=== PATIENT | female | born 1980 | race African-American/Black ===

== ENCOUNTER 2017-03-11 11:22 | Emergency (ER) | payer BC ==
[~2017-03-11] VITALS: Ht 167.6 cm; Wt 122.9 kg
--- NOTE | ~2017-03-11 | CR181 ---
[facility] A Service of [facility] & [facility] / [facility] RADIOLOGY TEXT RESULTS PATIENT: TORITO OVIEDO LOCATION: [facility] : 76 UNIT #: [id number] AGE: [address]: Nina De La Vega MD SEX: F ORDER DR: [id number] [facility] [address] [place], [place] [address] [id number] E MR#: [id number] Acc #: [id number] NAME: TORITO OVIEDO : 1980 SEX: F STUDY DATE/TIME: 03/11/2017 12:03 UNIT: [facility] ROOM: STUDY DESCRIPTION: CR Lumbar Spine 2 or 3 Views Attending Physician: Nina De La Vega M.D. Ordering Physician: Nina De La Vega M.D. Primary Care Physician: Komal Payne M.D. MEDICAL IMAGING REPORT This report is preliminary unless electronic signature is present EXAM Three views lumbar spine INDICATION Low back pain on the left side for 1 week. No known injury. FINDINGS No acute fracture or subluxation of the lumbar spine is identified. Lumbar vertebral body alignment appears within normal limits. Patient does have some mild degenerative changes. No aggressive osseous abnormalities are seen. Sacroiliac joints appear well preserved. IMPRESSION No acute disease. Dictated by... Barbi Ridley M.D. THIS IS AN ELECTRONICALLY VERIFIED REPORT Barbi Ridley M.D. at 03/12/2017 5:00 PM AFF/mjs TD: 03/11/2017 13:22 JOB #: [id number] MEDICAL IMAGING REPORT Page 1 of 1 COPY
[~2017-03-11 11:22] MED LIST: ALDACTONE PO; VOLTAREN75 MG PO; WALGREEN'S PHARMACY
[2017-03-11 11:56] LABS: URINE SOURCE CLEAN CATCH
[2017-03-11 12:09] LABS: URINE APPEARANCE CLEAR; URINE BILIRUBIN NEG (NEG); URINE BLOOD NEG (NEG); URINE COLOR YELLOW; URINE GLUCOSE NEG (NEG); URINE KETONE NEG (NEG); URINE LEUKOCYTE ESTERASE NEG (NEG); URINE NITRATE NEG (NEG); URINE PROTEIN NEG (NEG); URINE SPECIFIC GRAVITY 1.017 (1.003-1.035); URINE UROBILINOGEN 0.2 MG/DL (NEG)
[2017-03-11 12:14] LABS: CULTURE INDICATED? NO
== END 2017-03-11 12:34 | disposition home or self-care (01) ==
LOC: CED 11:22
PROVIDERS: Student in an Organized Health Care Education/Training Program
DX: S39.012A Strain of muscle, fascia and tendon of lower back, initial encounter (principal); J45.909 Unspecified asthma, uncomplicated; E03.9 Hypothyroidism, unspecified; Z88.0 Allergy status to penicillin; Z88.2 Allergy status to sulfonamides; Z88.1 Allergy status to other antibiotic agents; Z79.899 Other long term (current) drug therapy; Z98.890 Other specified postprocedural states; X58.XXXA Exposure to other specified factors, initial encounter; Y92.9 Unspecified place or not applicable
CPT/HCPCS: 72100; 81003; 84703; 99283